=== PATIENT | male | born 1980 | race Caucasian/White ===

== ENCOUNTER 2023-11-18 00:22 | Emergency (ER) | payer OTHER ==
[2023-11-18 00:29] VITALS: BMI 29.8
[2023-11-18] MEDS ORDERED: ACETAMINOPHEN INJECTION 100 ML IVPB ONE (01:43)
[2023-11-18] MEDS: ACETAMINOPHEN 1000 MG/100 ML BAG IVPB ONE (01:55)
[2023-11-18 02:03] LABS: BASO % 0.5 % (0-2.0); EOS % 1.7 % (0-4.5); HEMATOCRIT 39.3 % (35.4-49); HEMOGLOBIN 13.8 GM/dL (11.7-16.9); LYMPH % 32.5 % (8-40); MCH 31.2 pg (25.7-33.7); MCHC 35.1 g/dl (32.0-35.9); MEAN CELL VOLUME 88.9 fl (80-96); MEAN PLT VOLUME 9.4 fl (7.5-11.1); MONO % 7.5 % (3.8-10.2); NEUT % 57.8 % (42.8-82.8); PLATELET COUNT 183 10^3/uL (134-434); RBC 4.42 M/mm3 (4.00-5.60); RDW 13.1 % (11.9-15.9); WHITE BLOOD COUNT 7.2 K/mm3 (4.0-10.0)
[2023-11-18 02:12] LABS: INR 0.99 (0.83-1.09); PROTHROMBIN TIME (PATIENT) 11.5 SEC (9.7-13.0)
[2023-11-18 02:15] LABS: ACTIVATED PTT 27.2 SECONDS (25.2-36.5)
[2023-11-18 02:24] LABS: CALCIUM 8.4 mg/dL (8.5-10.1)
[2023-11-18 02:25] LABS: ALBUMIN 3.5 g/dl (3.4-5.0)
[2023-11-18 02:29] LABS: BILIRUBIN,TOTAL 0.4 mg/dL (0.2-1); TOT PROT 6.3 g/dl (6.4-8.2)
[2023-11-18 02:32] LABS: N-TERMINAL BNP 49.6 pg/ml (5-125)
[2023-11-18 02:34] LABS: BLOOD UREA NITROGEN 17.3 mg/dL (7-18); CREATININE 1.4 mg/dL (0.55-1.3)
[2023-11-18] MEDS: SODIUM CHLORIDE 0.9% 500 ML INFUS.BAG IV ONE (05:54)
[2023-11-18 06:04] VITALS: BP 120/73; PULSE 58; RESP 19; TEMP 97.9
== END 2023-11-18 06:21 | disposition home or self-care (01) ==
LOC: JER 00:22
PROC: 3E033NZ Introduction of Analgesics, Hypnotics, Sedatives into Peripheral Vein, Percutaneous Approach (ICD-10-PCS; principal; 2023-11-18)
DX: R07.89 Other chest pain (principal); Z20.822 Contact with and (suspected) exposure to COVID-19
CPT/HCPCS: 0241U-QW; 36415; 71045-TC-FY; 80053; 83880; 84484; 85025; 85379; 85610; 85730; 93005; 93010; 99285-25; J0131